=== PATIENT | female | born 1975 | race Caucasian/White ===

== ENCOUNTER → 2021-02-06 14:50 | Outpatient (CLI) | payer BC | END | disposition home or self-care (01) | LOC: D.RAD 14:50 | PROVIDERS: ATTEND Pain Medicine Interventional Pain Medicine | DX: M25.552 Pain in left hip (principal); Z79.899 Other long term (current) drug therapy; Z79.891 Long term (current) use of opiate analgesic ==

== ENCOUNTER 2021-03-20 23:15 | Emergency (ER) | payer BC ==
[~2021-03-20] VITALS: Ht 162.6 cm; Wt 116.4 kg
[2021-03-20 23:35] VITALS: BP 169/92; Ht 162.6 cm; Wt 116.4 kg
[2021-03-20] MEDS ORDERED: ADIPEX-P37.5 M1 PO (23:36)
[2021-03-20] MEDS ORDERED: LEXAPRO20 MG PO (23:37)
[2021-03-20] MEDS ORDERED: HYDROCODONE-AC1 EAC2 PO (23:37)
[2021-03-21] MEDS ORDERED: CLEOCIN HCL300 MG PO (02:29)
== END 2021-03-21 02:41 | disposition home or self-care (01) ==
LOC: D.ER 23:15
DX: T63.421A Toxic effect of venom of ants, accidental (unintentional), initial encounter (principal); L03.116 Cellulitis of left lower limb